=== PATIENT | female | born 1970 | race Caucasian/White ===

== ENCOUNTER 2019-12-31 09:28 | Outpatient (CLI) | payer OTHER | END 2019-12-31 14:44 | disposition home or self-care (01) | LOC: LAB 09:28 | DX: Z20.828 Contact with and (suspected) exposure to other viral communicable diseases (principal) ==

== ENCOUNTER 2020-01-25 09:51 | Outpatient (CLI) | payer OTHER | END 2020-01-25 15:00 | disposition home or self-care (01) | LOC: PPH VACUNA 09:51 | DX: Z23 Encounter for immunization (principal) ==

== ENCOUNTER → 2020-03-27 12:14 | Outpatient (CLI) | payer OTHER | END | disposition home or self-care (01) | LOC: LAB 12:14 | DX: Z20.828 Contact with and (suspected) exposure to other viral communicable diseases (principal) ==

== ENCOUNTER → 2020-11-06 08:00 | Outpatient (CLI) | payer OTHER | END | disposition home or self-care (01) | LOC: PPH VACUNA 08:00 | PROVIDERS: ATTEND Emergency Medicine Pediatric Emergency Medicine | DX: Z23 Encounter for immunization (principal) ==

== ENCOUNTER → 2020-12-24 | Day surgery (SDC) | payer OTHER ==
[~2020-12-24] VITALS: Ht 160 cm; Wt 59.0 kg
[~2020-12-24] MED LIST: CEFADROXIL500 MG PO; CELEBREX200MG PO; GABAPENTIN100 M2 PO; ULTRAM50 MG PO
--- NOTE | 2020-12-24 10:48 | NUR ---
SE RECIBE PTE ALERTA Y ORIENTADA EN KHANH CYNTHIA ESFERAS, LA CUAL LLEGA AMBULANDO, REFIERE LE DANAY ORION JARRA DE RAMIRO EN EL PIE LT. SE UBICA EN AREA DE OBSERVACION.
--- NOTE | 2020-12-24 11:06 | NUR ---
PTE EVALUADA POR EL DR LUI Y DR BALTAZAR, QUIENES ORDENAN EL [place]. MR A BRICEÑO ORIENTA SOBRE EL TX ORDENADO, LO CUAL REFIERE ENTENDER, REALIZA PRUEBAS DE LABORATORIO Y ADMINISTRA MEDICAMENTO TONY ORDEN MEDICA Y SIGUIENDO MEDIDAS ASEPTICAS. SE NOTIFICAN SELENA X A PERSONAL DE TUR[place]. PTE CON ORDEN DE ADMISION A OR, PENDIENTE RESULTADOS DE LABORATORIO.
== END | disposition home or self-care (01) ==
LOC: ER 10:11 → O/R 10:49 → ER 10:49 → SEC-K 10:49 → CIR.AMB 10:50 → ER 10:50 → CIR.AMB 10:50 → EDSTATUS 12:00 → O/R 15:59 → SEC-K 15:59 → O/R 16:30 → SEC-K 19:38 → O/R 19:38
PROVIDERS: ATTEND Orthopaedic Surgery
DX: S86.022A Laceration of left Achilles tendon, initial encounter (principal); S96.122A Laceration of muscle and tendon of long extensor muscle of toe at ankle and foot level, left foot, initial encounter; Z20.822 Contact with and (suspected) exposure to COVID-19

== ENCOUNTER → 2021-06-29 | Outpatient (CLI) | payer OTHER | END | disposition home or self-care (01) | LOC: LAB 11:39 | PROVIDERS: ATTEND Physical Medicine & Rehabilitation | DX: Z20.828 Contact with and (suspected) exposure to other viral communicable diseases (principal) ==

== ENCOUNTER 2021-10-10 12:14 | Outpatient (CLI) | payer OTHER | END 2021-10-10 12:19 | disposition home or self-care (01) | LOC: PPH VACUNA 12:14 | PROVIDERS: ATTEND Emergency Medicine Pediatric Emergency Medicine | DX: Z23 Encounter for immunization (principal) ==

== ENCOUNTER 2021-11-01 11:00 | Outpatient (CLI) | payer OTHER | END 2021-11-01 11:06 | disposition home or self-care (01) | LOC: MRI 11:00 | PROVIDERS: ATTEND Orthopaedic Surgery | DX: M25.571 Pain in right ankle and joints of right foot (principal); S93.491A Sprain of other ligament of right ankle, initial encounter | CPT/HCPCS: 73721 ==

== ENCOUNTER 2024-12-31 08:00 | Outpatient (CLI) | payer OTHER | END 2024-12-31 13:25 | disposition home or self-care (01) | LOC: PPH VACUNA 08:00 | PROVIDERS: ATTEND Emergency Medicine Pediatric Emergency Medicine | DX: Z23 Encounter for immunization (principal) ==